=== PATIENT | male | born 1970 | race Caucasian/White ===

== ENCOUNTER 2023-03-14 10:23 | Outpatient (CLI) | payer OTHER | END 2023-03-14 10:24 | disposition home or self-care (01) | LOC: MRI 10:23 | PROVIDERS: ATTEND Nurse Practitioner Family | DX: T81.89XD Other complications of procedures, not elsewhere classified, subsequent encounter (principal); M86.671 Other chronic osteomyelitis, right ankle and foot; M61.571 Other ossification of muscle, right ankle and foot ==